=== PATIENT | female | born 1960 | race American Indian/Alaskan Native ===

== ENCOUNTER 2020-03-15 20:51 | Emergency (ER) | payer MEDICARE ==
[2020-03-16 02:58] VITALS: BP 144/75
[2020-03-16] MEDS ORDERED: DOCUSATE SODIUM 100 MG/10 ML ORAL LIQD PO ONE (10:35)
--- NOTE | 2020-03-16 10:51 | Emergency Department Report ---
ED ENT HPI - General Chief complaint: Earache Stated complaint: CANT HEAR OUT OF RIGHT EAR Time Seen by Provider: 03/16/20 10:34 Source: patient Mode of arrival: Ambulatory Limitations: No Limitations - History of Present Illness Initial comments: Patient is a 59-year-old female presents emergency room with complaints of bilateral ear pain that began 5 days ago. She states that her hearing feels muffled. She states that she used Debrox [id number] ear cleaning solution kit but continues to not have any relief. She denies any ear drainage or getting anything in the ear. She denies any medication allergies. ED Dental HPI - General Chief complaint: Earache Stated complaint: CANT HEAR OUT OF RIGHT EAR Time Seen by Provider: 03/16/20 10:34 Source: patient Mode of arrival: Ambulatory Limitations: No Limitations ED Review of Systems ROS: Stated complaint: CANT HEAR OUT OF RIGHT EAR Other details as noted in HPI Comment: All other systems reviewed and negative ED Past Medical Hx - Past Medical History Previous Medical History?: Yes Hx Hypertension: Yes - Surgical History Past Surgical History?: No - Social History Smoking Status: Never Smoker ED Physical Exam - General Limitations: No Limitations General appearance: alert, in no apparent distress - Head Head exam: Present: atraumatic, normocephalic - Eye Eye exam: Present: normal appearance - ENT ENT exam: Present: normal orophraynx, mucous membranes moist, other (bilateral cerumen impactions, no erythema, no purulent drainage, unable to visualize TMs bilaterally) - Respiratory Respiratory exam: Absent: respiratory distress, accessory muscle use - Neurological Exam Neurological exam: Present: alert, oriented X3 - Psychiatric Psychiatric exam: Present: normal affect, normal mood - Skin Skin exam: Present: warm, dry, intact ED Course Vital Signs 03/16/20 02:50 Temperature 98.8 F Pulse Rate 82 Respiratory 18 Rate Blood Pressure 144/75 O2 Sat by Pulse 96 Oximetry - Ear Wax Removal Both Ears Cerumenolytic Used: Colace Ear Canal Irrigated by: other (Radha Guerin PA-C) Ear Canal Irrigated With: warm saline with H2O2 using syringe/angiocath Results: Re-examined: cerumen removed completel TM Visible: TM(s) intact, normal appe Ear Canal: atraumatic Patient Tolerated Procedure: well, no complications Complications: no problems ED Medical Decision Making - Medical Decision Making Patient is a 59-year-old female presents emergency room with complaints of bilateral ear pain that began 5 days ago. She states that her hearing feels muffled. She states that she used Debrox [id number] ear cleaning solution kit but continues to not have any relief. She denies any ear drainage or getting anything in the ear. She denies any medication allergies. VSS. on exam:bilateral cerumen impactions, no erythema, no purulent drainage, unable to visualize TMs bilaterally. Earwax removal performed using Colace and then warm saline with peroxide and a syringe with an Angiocath. All wax was removed. No complications, bilateral TMs are normal, patient tolerated well, no bleeding. Advised patient Please follow-up with your primary care doctor. Please follow- up with ENT doctor. May use Debrox ear cleaning solution kit to help remove excess wax in the future. Return to emergency room for any new or worsening symptoms. Critical care attestation.: If time is entered above; I have spent that time in minutes in the direct care of this critically ill patient, excluding procedure time. ED Disposition Clinical Impression: Cerumen impaction Qualifiers: Laterality: bilateral Qualified Code(s): H61.23 - Impacted cerumen, bilateral Disposition: TO HOME OR SELFCARE Is pt being admited?: No Does the pt Need Aspirin: No Condition: Stable Instructions: Earwax Buildup, Adult Additional Instructions: Please follow-up with your primary care doctor. Please follow-up with ENT doctor. May use Debrox ear cleaning solution kit to help remove excess wax in the future. Return to emergency room for any new or worsening symptoms. Referrals: JEREMIAS ESCOBAR MD [Staff Physician] - 3-5 Days [facility] [Provider Group] - 3-5 Days [facility] [Outside] - 3-5 Days [facility] [Provider Group[facility] - 3-5 Days [facility] [Provider Group] - 3-5 Days Time of Disposition: 11:38 Print Language: UKRAINIAN
== END 2020-03-16 11:44 | disposition home or self-care (01) ==
LOC: ED 20:51
DX: H61.23 Impacted cerumen, bilateral (principal); I10 Essential (primary) hypertension